=== PATIENT | male | born 1940 | race Caucasian/White ===

== ENCOUNTER 2023-05-11 17:50 | Emergency (ER) | payer MEDICARE | END 2023-05-11 20:55 | LOC: ERS 17:50 | DX: S00.83XA Contusion of other part of head, initial encounter (principal); I25.10 Atherosclerotic heart disease of native coronary artery without angina pectoris; I10 Essential (primary) hypertension; G40.909 Epilepsy, unspecified, not intractable, without status epilepticus; W18.11XA Fall from or off toilet without subsequent striking against object, initial encounter; Z79.899 Other long term (current) drug therapy | CPT/HCPCS: 70450; 72125 ==